=== PATIENT | male | born 1955 | race Caucasian/White ===

== ENCOUNTER 2017-06-30 16:22 | Inpatient (IN) | payer OTHER ==
[~2017-06-30] VITALS: Ht 188 cm; Wt 79.4 kg
[2017-06-30 16:24] VITALS: Ht 188 cm; Wt 79.4 kg
[2017-06-30 17:27] LABS: BASOPHIL % 0.4 % (0-2); PLATELET COUNT 245 x10^3mcL (130-400); RED CELL DISTRIBUTION WIDTH 13.9 % (11.5-14.5)
[2017-06-30 17:43] LABS: CALCIUM 8.9 mg/dL (8.5-10.1); CREATININE SERUM 1.3 mg/dL (0.7-1.3); POTASSIUM SERUM 3.3 mmol/L (3.5-5.1)
[2017-06-30 17:55] LABS: T3 TOTAL 0.83 ng/mL
[2017-06-30 18:24] LABS: ALBUMIN 3.7 g/dL (3.4-5.0); BILIRUBIN TOTAL 0.61 mg/dL (0.20-1.00); TOTAL PROTEIN, SERUM 6.9 g/dL (6.4-8.2)
[2017-06-30 18:48] LABS: CK-MB 1.6 ng/mL (0-3.6)
[2017-06-30 18:59] LABS: ERYTHROCYTE SED RATE 11 mm/hr (0-20)
[2017-06-30 19:00] LABS: FREE T4 1.02 ng/dL (0.76-1.46); T4(THYROXINE) 5.6 ug/dL (4.7-13.3)
[2017-06-30] MEDS ORDERED: ROBAXIN-750750 MG PO (21:11)
[2017-06-30] MEDS ORDERED: APAP/HYDROCODON1 T15 PO (21:11)
[2017-06-30] MEDS ORDERED: PREDNISONE20 MG PO (21:12)
[2017-06-30 22:07] LABS: CHOLESTEROL/HDL RATIO 2.3; MAGNESIUM 1.7 mg/dL (1.8-2.4)
[2017-06-30 22:10] VITALS: BP 105/64
[2017-07-01] VITALS (7 sets, daily range): BP systolic 95–138; BP diastolic 52–68
[2017-07-01 05:26] LABS: BASOPHIL % 0.6 % (0-2); PLATELET COUNT 179 x10^3mcL (130-400); RED CELL DISTRIBUTION WIDTH 14.1 % (11.5-14.5)
[2017-07-01 05:44] LABS: CALCIUM 8.4 mg/dL (8.5-10.1); CARBON DIOXIDE 26.6 mmol/L (21-32); CHLORIDE SERUM 106 mmol/L (98-107); GFR1 > 60 mL/min; GLUCOSE SERUM 130 mg/dL (74-106); MAGNESIUM 1.8 mg/dL (1.8-2.4); PHOSPHOROUS 4.3 mg/dL (2.5-4.9); POTASSIUM SERUM 4.2 mmol/L (3.5-5.1); SODIUM SERUM 139 mmol/L (136-145)
[2017-07-02 05:27] VITALS: BP 121/62
[2017-07-02 07:29] LABS: BASOPHIL % 0.3 % (0-2); PLATELET COUNT 169 x10^3mcL (130-400); RED CELL DISTRIBUTION WIDTH 14.3 % (11.5-14.5)
[2017-07-02 07:50] LABS: CALCIUM 8.5 mg/dL (8.5-10.1); CARBON DIOXIDE 26.3 mmol/L (21-32); CHLORIDE SERUM 103 mmol/L (98-107); CREATININE SERUM 0.9 mg/dL (0.7-1.3); GFR1 > 60 mL/min; GLUCOSE SERUM 96 mg/dL (74-106); MAGNESIUM 1.7 mg/dL (1.8-2.4); PHOSPHOROUS 4.1 mg/dL (2.5-4.9); POTASSIUM SERUM 4.2 mmol/L (3.5-5.1); SODIUM SERUM 138 mmol/L (136-145)
[2017-07-02 09:55] VITALS: BP 119/69
[2017-07-02] MEDS ORDERED: PROAIR HFA8.5 GM IH (12:51)
[2017-07-02] MEDS ORDERED: NOR10T PO (12:52)
[2017-07-02] MEDS ORDERED: COLACE100 MG PO (12:53)
[2017-07-02] MEDS ORDERED: CYCLOBENZAPRINE5 MG PO (13:10)
[2017-07-02] MEDS ORDERED: NIC14 TD (13:24)
[2017-07-02] MEDS ORDERED: BD LACTINEX1.4 MG PO (13:25)
[2017-07-02] MEDS ORDERED: LEVAQUIN750 MG PO (13:27)
[2017-07-03] MEDS ORDERED: DILTIAZEM30 M1 PO (17:04)
[2017-07-03] MEDS ORDERED: LEVAQUIN750 MG PO (17:05)
[2017-07-03] MEDS ORDERED: CLEOCIN HCL300 MG PO (17:05)
[2017-07-03] MEDS ORDERED: LAC PO (17:06)
[2017-07-03] MEDS ORDERED: MOT600 PO (17:07)
[2017-07-03] MEDS ORDERED: PEPCID20 MG PO (17:08)
[2017-07-03] MEDS ORDERED: MEDDP PO (17:08)
[2017-07-03] MEDS ORDERED: CLARITIN10 MG PO (17:08)
== END 2017-07-02 13:59 | disposition home or self-care (01) | DRG 193 ==
LOC: EDBD 16:22 → ED 16:22 → DU 20:48 → IC 20:48 → DU 07-01 16:41
PROVIDERS: Family Medicine; Specialist
PROC: 05HM33Z Insertion of Infusion Device into Right Internal Jugular Vein, Percutaneous Approach (ICD-10-PCS; principal; 2017-07-01)
PROC: B543ZZA Ultrasonography of Right Jugular Veins, Guidance (ICD-10-PCS; 2017-07-01)
DX: J18.9 Pneumonia, unspecified organism (principal); J96.00 Acute respiratory failure, unspecified whether with hypoxia or hypercapnia; N17.0 Acute kidney failure with tubular necrosis; D47.02 Systemic mastocytosis; J44.1 Chronic obstructive pulmonary disease with (acute) exacerbation; E86.0 Dehydration; I48.91 Unspecified atrial fibrillation; S22.41XD Multiple fractures of ribs, right side, subsequent encounter for fracture with routine healing; N28.1 Cyst of kidney, acquired; K80.20 Calculus of gallbladder without cholecystitis without obstruction; F17.210 Nicotine dependence, cigarettes, uncomplicated; Z68.24 Body mass index [BMI] 24.0-24.9, adult; Z79.52 Long term (current) use of systemic steroids; W17.89XD Other fall from one level to another, subsequent encounter
CPT/HCPCS: 36556; 36600; 83880; 84439; 85378; J1170; J1642; J1644; J1885; J2060; J2270; J2405; J3010; J3490; J7030; J7040; J7620; Q0092; Q9967

== ENCOUNTER 2017-07-02 16:34 | Observation (INO) | payer OTHER ==
[~2017-07-02] VITALS: Ht 188 cm; Wt 87.1 kg
[~2017-07-02 16:34] MED LIST: APAP/HYDROCODON1 T15 PO; BD LACTINEX1.4 MG PO; COLACE100 MG PO; CYCLOBENZAPRINE5 MG PO; LEVAQUIN750 MG PO; NIC14 TD; NOR10T PO; PREDNISONE20 MG PO; PROAIR HFA8.5 GM IH; ROBAXIN-750750 MG PO
[2017-07-02 16:57] VITALS: Ht 188 cm; Wt 87.1 kg
[2017-07-02 17:04] LABS: BASOPHIL % 0.6 % (0-2); PLATELET COUNT 277 x10^3mcL (130-400); RED CELL DISTRIBUTION WIDTH 14.6 % (11.5-14.5)
[2017-07-02 17:13] LABS: CALCIUM 8.6 mg/dL (8.5-10.1); CARBON DIOXIDE 28.5 mmol/L (21-32); CREATININE SERUM 1.3 mg/dL (0.7-1.3); POTASSIUM SERUM 4.1 mmol/L (3.5-5.1)
[2017-07-02 17:17] LABS: BILIRUBIN TOTAL 0.6 mg/dL (0.20-1.00); TOTAL PROTEIN, SERUM 6.3 g/dL (6.4-8.2)
[2017-07-02 17:19] LABS: ALBUMIN 3.2 g/dL (3.4-5.0)
[2017-07-02 21:47] LABS: AMPHETAMINE QUAL UR NONE DETECTED (NEG <=1000)
[2017-07-03 02:31] VITALS: BP 125/55
[2017-07-03 03:23] LABS: MAGNESIUM 1.7 mg/dL (1.8-2.4); PHOSPHOROUS 4.5 mg/dL (2.5-4.9)
[2017-07-03 05:00] VITALS: BP 125/55
[2017-07-03 06:24] VITALS: BP 112/65
[2017-07-03 10:00] VITALS: BP 106/68
[2017-07-03 12:30] VITALS: BP 124/63
[2017-07-03] MEDS ORDERED: DILTIAZEM30 M1 PO (17:04)
[2017-07-03] MEDS ORDERED: LEVAQUIN750 MG PO (17:05)
[2017-07-03] MEDS ORDERED: CLEOCIN HCL300 MG PO (17:05)
[2017-07-03] MEDS ORDERED: LAC PO (17:06)
[2017-07-03] MEDS ORDERED: MOT600 PO (17:07)
[2017-07-03] MEDS ORDERED: CLARITIN10 MG PO (17:08)
[2017-07-03] MEDS ORDERED: PEPCID20 MG PO (17:08)
[2017-07-03] MEDS ORDERED: MEDDP PO (17:08)
[2017-07-03 17:42] VITALS: BP 124/63
== END 2017-07-03 18:21 | disposition home or self-care (01) | DRG 177 ==
LOC: ED 16:34 → DU 07-03 00:02 → IC 07-03 00:02 → DU 07-03 00:02
PROVIDERS: Emergency Medicine; Student in an Organized Health Care Education/Training Program
DX: J69.0 Pneumonitis due to inhalation of food and vomit (principal); J96.01 Acute respiratory failure with hypoxia; N17.0 Acute kidney failure with tubular necrosis; E44.1 Mild protein-calorie malnutrition; D47.09 Other mast cell neoplasms of uncertain behavior; I48.91 Unspecified atrial fibrillation; S22.31XD Fracture of one rib, right side, subsequent encounter for fracture with routine healing; J44.9 Chronic obstructive pulmonary disease, unspecified; N28.1 Cyst of kidney, acquired; E83.42 Hypomagnesemia; F17.210 Nicotine dependence, cigarettes, uncomplicated; F10.10 Alcohol abuse, uncomplicated; D64.9 Anemia, unspecified; Z68.24 Body mass index [BMI] 24.0-24.9, adult; W17.89XD Other fall from one level to another, subsequent encounter
CPT/HCPCS: 36600; 83880; 87804; 94150; G0378; G0480; J0456; J0696; J1885; J1956; J2405; J2930; J3490; J7030; J7050; J7613; J7620; J7644; Q0092